=== PATIENT | female | born 2000 | race Two or more races ===

== ENCOUNTER 2024-10-10 12:26 | Emergency (ER) | payer OTHER ==
[~2024-10-10] VITALS: Ht 154.9 cm; Wt 70.3 kg
[2024-10-10] MEDS ORDERED: PAXIL10 MG/5 ML PO (13:25)
[2024-10-10] MEDS ORDERED: MECLIZINE HCL 25 MG TABLET PO STA (14:34)
[2024-10-10 15:51] LABS: BASO % 0.5 % (0.1-1.2); EOS # 0.12 (0.04-0.54); EOS % 1.9 % (0.7-7.0); LYMPH # 1.94 (1.18-3.74); LYMPH % 30.2 % (19.3-53.1); MEAN PLATELET VOLUME 8.70 fl (9.4-12.4); MONO # 0.37 (0.24-0.82); MONO % 5.8 % (4.7-12.5); NEUT # 3.95 (1.56-6.13); NEUT % 61.4 % (34.0-71.1); RED CELL DISTRIBUTION WIDTH 13.2 % (11.6-14.4)
[2024-10-10 16:18] LABS: ALT/SGPT 16.0 U/L (12-78); AST/SGOT 11.0 U/L (15-37); BILIRUBIN TOTAL 0.23 mg/dL (0.3-1.2); BUN CREA RATIO 18.0 (7.0-25.0); CREATININE SERUM 0.72 mg/dL (0.55-1.02); GFR 98.69; GLOBULINA 3.9 G/DL (2.4-3.5); GLUCOSE FASTING 105.0 mg/dL (65-100); OSMOLALITY SERUM 280.0 MOSM/KG (275-295)
[2024-10-10] MEDS ORDERED: MEDI-MECLIZINE25 MG PO (19:50)
== END 2024-10-10 19:55 | disposition home or self-care (01) ==
LOC: ER 12:26
PROVIDERS: General Practice
DX: H81.10 Benign paroxysmal vertigo, unspecified ear (principal); R20.0 Anesthesia of skin; Z88.1 Allergy status to other antibiotic agents; S00.419A Abrasion of unspecified ear, initial encounter